=== PATIENT | male | born 1995 | race Caucasian/White ===

== ENCOUNTER 2018-06-13 18:42 | Emergency (ER) | payer OTHER ==
[2018-06-13 18:47] VITALS: BP 120/48; PULSE 75; TEMP 97.2; BMI 22.8
[2018-06-13] MEDS ORDERED: methylPREDNISolone NA SUCC 125 MG/2 ML VIAL ONE (19:12)
--- NOTE | 2018-06-13 20:21 | PDOC ---
History of Present Illness - General History Source: Patient Exam Limitations: No Limitations - History of Present Illness Initial Comments: 06/13/18 20:28 The patient is a 23 year old male, with no significant past medical history, who presents to the emergency department with, an allergic reaction to the blt UE, back, and face. As per patient, was in the [place] when he came in contact with trees then, he ate [employer], approximately 25 minutes later he began to experience a rash to the right elbow, right upper arm, back, and swelling to the eyes. He denies similar episodes in the past. He denies any recent fevers, chills, headache or dizziness. He denies any recent nausea, vomit, diarrhea or constipation. He denies any recent chest pain or shortness of breath. He denies any recent dysuria, frequency, urgency or hematuria. Allergies: NKDA Past surgical history: None reported. <John Koenig - Last Filed: 06/13/18 20:28> <Brandy Oneil - Last Filed: 06/13/18 21:41> - General Chief Complaint: Poison [place],Poison [place] Exposure Stated Complaint: EXPOSURE TO POISON [place] Time Seen by Provider: 06/13/18 19:03 Past History <John Koenig - Last Filed: 06/13/18 20:28> - Past Medical History COPD: No - Suicide/Smoking/Psychosocial Hx Smoking History: Never smoked <Brandy Oneil - Last Filed: 06/13/18 21:41> - Past Medical History Allergies/Adverse Reactions: Allergies Allergy/AdvReac Type Severity Reaction Status Date / Time No Known Allergies Allergy Verified 06/13/18 18:47 Home Medications: Ambulatory Orders Acetaminophen [Tylenol] 650 mg PO PRN 06/13/18 predniSONE [Deltasone -] 40 mg PO DAILY #8 tablet 06/13/18 Review of Systems - Review of Systems Able to Perform ROS?: Yes Comments:: 06/13/18 20:29 GENERAL/CONSTITUTIONAL: No fever or chills. No weakness. HEAD, EYES, EARS, NOSE AND THROAT: No change in vision. No ear pain or discharge. No sore throat. CARDIOVASCULAR: No chest pain or shortness of breath. RESPIRATORY: No cough, wheezing, or hemoptysis. GASTROINTESTINAL: No nausea, vomiting, diarrhea or constipation. GENITOURINARY: No dysuria, frequency, or change in urination. MUSCULOSKELETAL: No joint or muscle swelling or pain. No neck or back pain. SKIN: No rash NEUROLOGIC: No headache, vertigo, loss of consciousness, or change in strength/ sensation. ENDOCRINE: No increased thirst. No abnormal weight change. HEMATOLOGIC/LYMPHATIC: No anemia, easy bleeding, or history of blood clots. ALLERGIC/IMMUNOLOGIC: + Hives to the back, blt UE, and swelling to the face. All Other Systems: Reviewed and Negative <John Koenig - Last Filed: 06/13/18 20:28> *Physical Exam - Vital Signs Last Vital Signs Temp Pulse Resp BP Pulse Ox 97.2 F L 75 18 120/48 L 99 06/13/18 18:44 06/13/18 18:44 06/13/18 18:44 06/13/18 18:44 06/13/18 18:44 <John Koenig - Last Filed: 06/13/18 20:28> - Vital Signs Last Vital Signs Temp Pulse Resp BP Pulse Ox 97.2 F L 75 18 120/48 L 99 06/13/18 18:44 06/13/18 18:44 06/13/18 18:44 06/13/18 18:44 06/13/18 18:44 - Physical Exam Comments: GENERAL: Awake, alert, and fully oriented, in no acute distress HEAD: No signs of trauma EYES: PERRLA, EOMI, sclera anicteric, conjunctiva clear ENT: Auricles normal inspection, hearing grossly normal, nares patent, oropharynx clear without exudates. Moist mucosa NECK: Normal ROM, supple, no lymphadenopathy, JVD, or masses LUNGS: Breath sounds equal, clear to auscultation bilaterally. No wheezes, and no crackles HEART: Regular rate and rhythm, normal S1 and S2, no murmurs, rubs or gallops ABDOMEN: Soft, nontender, normoactive bowel sounds. No guarding, no rebound. No masses EXTREMITIES: Normal range of motion, no edema. No clubbing or cyanosis. No cords, erythema, or tenderness NEUROLOGICAL: Cranial nerves II through XII grossly intact. Normal speech, normal gait. Motor and sensation intact SKIN: Warm, Dry, normal turgor. +Urticarial rash to limbs B/L, slight swelling lower eyelids B/L. <Brandy Oneil - Last Filed: 06/13/18 21:41> Moderate Sedation - Procedure Monitoring Vital Signs: Procedure Monitoring Vital Signs Temperature 97.2 F L 06/13/18 18:44 Pulse Rate 75 06/13/18 18:44 Respiratory Rate 18 06/13/18 18:44 Blood Pressure 120/48 L 06/13/18 18:44 O2 Sat by Pulse Oximetry (%) 99 06/13/18 18:44 <John Koenig - Last Filed: 06/13/18 20:28> - Procedure Monitoring Vital Signs: Procedure Monitoring Vital Signs Temperature 97.2 F L 06/13/18 18:44 Pulse Rate 75 06/13/18 18:44 Respiratory Rate 18 06/13/18 18:44 Blood Pressure 120/48 L 06/13/18 18:44 O2 Sat by Pulse Oximetry (%) 99 06/13/18 18:44 <Brandy Oneil - Last Filed: 06/13/18 21:41> ED Treatment Course - Medications Given in the ED: ED Medications Discontinued Medications Generic Name Dose Route Start Last Admin Trade Name Freq PRN Reason Stop Dose Admin Diphenhydramine HCl 50 mg 06/13/18 19:26 06/13/18 19:47 Benadryl Injection - IVPUSH 06/13/18 19:27 50 mg ONCE ONE Administration <John Koenig - Last Filed: 06/13/18 20:28> - Medications Given in the ED: ED Medications Discontinued Medications Generic Name Dose Route Start Last Admin Trade Name Freq PRN Reason Stop Dose Admin Diphenhydramine HCl 50 mg 06/13/18 19:26 06/13/18 19:47 Benadryl Injection - IVPUSH 06/13/18 19:27 50 mg ONCE ONE Administration <Brandy Oneil - Last Filed: 06/13/18 21:41> Medical Decision Making - Medical Decision Making Pt given benadryl and steroids in RME. Improved significantly, stable for DC home. <Brandy Oneil - Last Filed: 06/13/18 21:41> *DC/Admit/Observation/Transfer - Attestations Scribe Attestion: 06/13/18 20:30 Documentation prepared by John Koenig, acting as medical office assistant instructor for Brandy Oneil MD. <John Koenig - Last Filed: 06/13/18 20:28> - Discharge Dispostion Decision to Admit order: No <Brandy Oneil - Last Filed: 06/13/18 21:41> Diagnosis at time of Disposition: Allergic reaction Qualifiers: Encounter type: initial encounter Qualified Code(s): T78.40XA - Allergy, unspecified, initial encounter - Discharge Dispostion Disposition: HOME Condition at time of disposition: Stable - Prescriptions Prescriptions: predniSONE [Deltasone -] 40 mg PO DAILY #8 tablet - Referrals Referrals: Ahsan Ruffin MD [Staff Physician] - - Patient Instructions Printed Discharge Instructions: DI for General Allergic Reactions Additional Instructions: Benadryl 25 mg every 6 hours as needed for rash, itching. Take prednisone daily as prescribed to prevent the rash from worsening. - Post Discharge Activity Forms/Work/School Notes: Back to Work
== END 2018-06-13 20:52 | disposition home or self-care (01) ==
LOC: JER 18:42
PROC: 3E033GC Introduction of Other Therapeutic Substance into Peripheral Vein, Percutaneous Approach (ICD-10-PCS; principal; 2018-06-13)
DX: T78.49XA Other allergy, initial encounter (principal); X58.XXXA Exposure to other specified factors, initial encounter; T78.3XXA Angioneurotic edema, initial encounter
CPT/HCPCS: 96374; 99282-25

== ENCOUNTER 2023-03-10 15:57 | Emergency (ER) | payer SELFPAY ==
[2023-03-10 16:18] VITALS: BP 137/59; PULSE 73; RESP 17; TEMP 98.1; BMI 25.1
== END 2023-03-10 17:25 | disposition home or self-care (01) ==
LOC: JERFT 15:57
DX: H02.842 Edema of right lower eyelid (principal); H00.012 Hordeolum externum right lower eyelid
CPT/HCPCS: 99282-25